=== PATIENT | female | born 1965 | race American Indian/Alaskan Native ===

== ENCOUNTER 2017-07-30 15:14 | Emergency (ER) | payer MEDICAID ==
[2017-07-30 15:49] LABS: Basophils % (Auto) 1.3 % (0.0-1.8); Eosinophils % (Auto) 0.6 % (0.0-4.3); Hematocrit 43.7 % (30.3-42.9); Hemoglobin 14.9 gm/dl (10.1-14.3); Mean Corpuscular HGB Conc 34 % (30-34); Mean Corpuscular Hemoglobin 33 pg (28-32); Mean Corpuscular Volume 97 fl (79-97); Platelet Count 240 K/mm3 (140-440); Red Blood Count 4.53 M/mm3 (3.65-5.03); Red Cell Distribution Width 14.1 % (13.2-15.2); White Blood Count 11.8 K/mm3 (4.5-11.0)
[2017-07-30 16:00] LABS: Alanine Aminotransferase 18 units/L (7-56); Albumin 4.1 g/dL (3.9-5); Albumin/Globulin Ratio 1.1 %; Alkaline Phosphatase 126 units/L (35-129); Anion Gap 19 mmol/L; Blood Urea Nitrogen 7 mg/dL (7-17); Calcium 9.2 mg/dL (8.4-10.2); Carbon Dioxide 24 mmol/L (22-30); Chloride 95.4 mmol/L (98-107); Glucose 103 mg/dL (65-100); Lipase 23 units/L (13-60); Potassium 3.6 mmol/L (3.6-5.0); Sodium 135 mmol/L (137-145); Total Protein 7.9 g/dL (6.3-8.2)
[2017-07-30 17:04] LABS: Bilirubin,Urine NEG (Negative); Blood,Urine NEG (Negative); Ketones,Urine NEG (Negative); Leukocyte Esterase,Urine NEG (Negative); Mucus,Urine 2+ /HPF; Nitrite,Urine NEG (Negative); Urobilinogen,Urine < 2.0 mg/dL (<2.0)
[2017-07-30] MEDS ORDERED: PEPCID IV ONE (19:46)
[2017-07-30] MEDS ORDERED: NACL 0.9% 1000 ML 1,000 ML IV ONE (19:46)
[2017-07-30] MEDS ORDERED: MORPHINE IV ONE (19:46)
[2017-07-30] MEDS ORDERED: ZOFRAN IV ONE (19:46)
[2017-07-30] MEDS ORDERED: CARAFATE PO ONE (19:47)
--- NOTE | 2017-07-30 19:48 | Emergency Department Report ---
ED Abdominal Pain HPI - General Chief Complaint: Abdominal Pain Stated Complaint: PAIN IN SIDE Time Seen by Provider: 07/30/17 19:40 Source: patient, RN notes reviewed, old records reviewed Mode of arrival: Ambulatory Limitations: No Limitations - History of Present Illness Initial Comments: This is a 52-year-old female who was previously unknown to this provider. Past medical history includes cholecystectomy and partial abdominal hysterectomy. She also has arthritis, and hypertension, reports that she does not have a primary care doctor. Patient presents to the ER with a complaint of abdominal pain. The abdominal pain is diffuse lower abdominal region, most prominent in the left lower quadrant, and also epigastric abdominal pain. This pain has been present for one month. There is positive nausea, no fevers or chills, no chest pain or shortness of breath, no irritative and obstructive urinary symptoms. Patient reports that she is defecating normally, passing gas. MD Complaint: abdominal pain -: Gradual Location: diffuse Quality: cramping Consistency: intermittent Improves With: rest Worsens With: movement Associated Symptoms: nausea, vomiting - Related Data Home Medications Medication Instructions Recorded Confirmed Last Taken Gabapentin [Gralise] 300 mg PO DAILY 06/10/15 06/10/15 06/09/15 300 mg Ondansetron [Zofran TAB] 4 mg PO Q6H 06/10/15 06/10/15 06/09/15 yes Previous Rx's Medication Instructions Recorded Last Taken Type Lisinopril/Hydrochlorothiazide 1 tab PO QDAY #30 tablet 10/06/13 06/09/15 Rx [Zestoretic 20-12.5 mg] 1 TAB metFORMIN [Glucophage] 850 mg PO BID #60 tablet 10/06/13 06/09/15 Rx 850 MG Dicyclomine [Bentyl] 10 mg PO QID PRN #20 capsule 07/30/17 Unknown Rx Famotidine [Pepcid] 20 mg PO QDAY #30 tablet 07/30/17 Unknown Rx Ondansetron [Zofran Odt] 4 mg PO QID PRN #20 tab.rapdis 07/30/17 Unknown Rx Allergies Allergy/AdvReac Type Severity Reaction Status Date / Time ibuprofen Allergy Rash Verified 07/30/17 15:17 Penicillins Allergy Rash Verified 07/30/17 15:17 tramadol Allergy Itching Verified 07/30/17 15:17 ED Review of Systems ROS: Stated complaint: PAIN IN SIDE Other details as noted in HPI Constitutional: denies: fever Eyes: denies: eye discharge ENT: denies: epistaxis Respiratory: denies: cough Cardiovascular: denies: chest pain Gastrointestinal: abdominal pain Genitourinary: denies: dysuria Musculoskeletal: arthralgia Skin: denies: lesions Neurological: denies: confusion ED Past Medical Hx - Past Medical History Hx Hypertension: Yes Hx Diabetes: Yes Hx Arthritis: Yes - Surgical History Hx Cholecystectomy: Yes Additional Surgical History: Hysterectomy - Social History Smoking Status: Current Every Day Smoker Substance Use Type: None - Medications Home Medications: Home Medications Medication Instructions Recorded Confirmed Last Taken Type Lisinopril/Hydrochlorothiazide 1 tab PO QDAY #30 tablet 10/06/13 06/10/15 Rx [Zestoretic 20-12.5 mg] 1 TAB metFORMIN [Glucophage] 850 mg PO BID #60 tablet 10/06/13 06/10/15 06/09/15 Rx 850 MG Gabapentin [Gralise] 300 mg PO DAILY 06/10/15 06/10/15 06/09/15 History 300 mg Ondansetron [Zofran TAB] 4 mg PO Q6H 06/10/15 06/10/15 06/09/15 History yes Dicyclomine [Bentyl] 10 mg PO QID PRN #20 capsule 07/30/17 Unknown Rx Famotidine [Pepcid] 20 mg PO QDAY #30 tablet 07/30/17 Unknown Rx Ondansetron [Zofran Odt] 4 mg PO QID PRN #20 tab.rapdis 07/30/17 Unknown Rx ED Physical Exam - General Limitations: No Limitations General appearance: alert, in no apparent distress - Head Head exam: Present: atraumatic, normocephalic - Eye Eye exam: Present: normal appearance, EOMI. Absent: nystagmus - ENT ENT exam: Present: normal exam, normal orophraynx, mucous membranes moist, normal external ear exam - Neck Neck exam: Present: normal inspection, full ROM. Absent: tenderness, meningismus - Respiratory Respiratory exam: Present: normal lung sounds bilaterally. Absent: respiratory distress, wheezes, rales, rhonchi, stridor, chest wall tenderness, accessory muscle use, decreased breath sounds, prolonged expiratory - Cardiovascular Cardiovascular Exam: Present: normal rhythm, tachycardia, normal heart sounds. Absent: systolic murmur, diastolic murmur, rubs, gallop - GI/Abdominal GI/Abdominal exam: Present: soft, tenderness, normal bowel sounds. Absent: distended - Extremities Exam Extremities exam: Present: normal inspection, full ROM, normal capillary refill , other (Extraocular movements intact. Tongue midline. No facial droop. Facial sensation intact to light touch in the V1, V2, V3 distribution bilaterally. 5 and 5 strength in 4 extremities.. Sensation is intact to light touch in 4 extremities.). Absent: pedal edema, joint swelling, calf tenderness - Back Exam Back exam: Present: normal inspection, full ROM. Absent: tenderness, CVA tenderness (R), CVA tenderness (L), muscle spasm, paraspinal tenderness, vertebral tenderness - Neurological Exam Neurological exam: Present: alert, oriented X3, other (Extraocular movements intact. Tongue midline. No facial droop. Facial sensation intact to light touch in the V1, V2, V3 distribution bilaterally. 5 and 5 strength in 4 extremities.. Sensation is intact to light touch in 4 extremities.). Absent: motor sensory deficit - Psychiatric Psychiatric exam: Present: normal affect, normal mood - Skin Skin exam: Present: warm, dry, intact, normal color. Absent: rash ED Course Vital Signs 07/30/17 07/30/17 07/30/17 15:18 19:15 19:30 Temperature 98.3 F 98.2 F Pulse Rate 106 H Respiratory 20 17 Rate Blood Pressure 126/82 Blood Pressure [Left] O2 Sat by Pulse 97 98 Oximetry 07/30/17 07/30/17 07/30/17 19:36 19:45 20:00 Temperature Pulse Rate 94 H 84 Respiratory 12 16 Rate Blood Pressure 121/69 115/73 Blood Pressure [Left] O2 Sat by Pulse 98 100 Oximetry 07/30/17 07/30/17 07/30/17 20:30 21:07 22:25 Temperature 98.5 F Pulse Rate 89 72 80 Respiratory 17 16 Rate Blood Pressure 115/64 115/64 Blood Pressure 105/68 [Left] O2 Sat by Pulse 96 99 Oximetry - Reevaluation(s) Reevaluation #1: 07/30/17 20:23 Differential diagnosis: Peptic ulcer disease, GERD/gastritis, intra-abdominal malignancy, colitis, diverticulitis, appendicitis, pneumonia, constipation, bowel obstruction Assessment and plan: 52-year-old female with acute subacute abdominal pain, who is afebrile with reassuring vital signs with the exception of tachycardia, with diffuse abdominal tenderness, most prominent in the epigastric and left lower quadrant region. The patient will be treated symptomatically. EKG, CT scan is pending. Disposition as per CT scan. Reevaluation #2: 07/30/17 21:48 Patient feels improved. Tachycardia resolved. Patient is tolerating liquid feeds. CT scan negative for acute disease. Incidental fatty infiltration of the liver is noted, areas of groundglass opacity noted in the lung bases, may be secondary to atelectasis. Given lack of cough, mucus production, fever, focal pulmonary findings on physical exam, symptoms present for 1 month, clinically doubt pneumonia. Patient is instructed to follow-up with an outpatient primary care doctor, she will be discharged with pain medication, nausea medication, return precautions are reviewed. ED Medical Decision Making - Lab Data Result diagrams: 07/30/17 15:28 07/30/17 15:28 Vital Signs 07/30/17 07/30/17 07/30/17 15:18 19:15 19:30 Temperature 98.3 F 98.2 F Pulse Rate 106 H Respiratory 20 17 Rate Blood Pressure 126/82 O2 Sat by Pulse 97 98 Oximetry 07/30/17 07/30/17 19:36 19:45 Temperature Pulse Rate 94 H Respiratory 12 Rate Blood Pressure 121/69 O2 Sat by Pulse 98 100 Oximetry Lab Results 07/30/17 07/30/17 07/30/17 Range/Units 15:25 15:28 15:28 WBC 11.8 H (4.5-11.0) K/mm3 RBC 4.53 (3.65-5.03) M/mm3 Hgb 14.9 H (10.1-14.3) gm/dl Hct 43.7 H (30.3-42.9) % MCV 97 (79-97) fl MCH 33 H (28-32) pg MCHC 34 (30-34) % RDW 14.1 (13.2-15.2) % Plt Count 240 (140-440) K/mm3 Lymph % (Auto) 35.0 (13.4-35.0) % Power % (Auto) 5.5 (0.0-7.3) % Eos % (Auto) 0.6 (0.0-4.3) % Baso % (Auto) 1.3 (0.0-1.8) % Lymph # 4.1 (1.2-5.4) K/mm3 Power # 0.6 (0.0-0.8) K/mm3 Eos # 0.1 (0.0-0.4) K/mm3 Baso # 0.1 (0.0-0.1) K/mm3 Seg Neutrophils % 57.6 (40.0-70.0) % Seg Neutrophils # 6.8 (1.8-7.7) K/mm3 Sodium 135 L (137-145) mmol/L Potassium 3.6 (3.6-5.0) mmol/L Chloride 95.4 L (98-107) mmol/L Carbon Dioxide 24 (22-30) mmol/L Anion Gap 19 mmol/L BUN 7 (7-17) mg/dL Creatinine 0.7 (0.7-1.2) mg/dL Estimated GFR > 60 ml/min BUN/Creatinine Ratio 10.00 % Glucose 103 H (65-100) mg/dL POC Glucose 95 (70-105) Calcium 9.2 (8.4-10.2) mg/dL Total Bilirubin 0.40 (0.1-1.2) mg/dL AST 12 (5-40) units/L ALT 18 (7-56) units/L Alkaline Phosphatase 126 (35-129) units/L Total Protein 7.9 (6.3-8.2) g/dL Albumin 4.1 (3.9-5) g/dL Albumin/Globulin Ratio 1.1 % Lipase 23 (13-60) units/L Urine Color (Yellow) Urine Turbidity (Clear) Urine pH (5.0-7.0) Ur Specific [place] (1.003-1.030) Urine Protein (Negative) mg/dL Urine Glucose (UA) (Negative) mg/dL Urine Ketones (Negative) mg/dL Urine Blood (Negative) Urine Nitrite (Negative) Urine Bilirubin (Negative) Urine Urobilinogen (<2.0) mg/dL Ur Leukocyte Esterase (Negative) Urine WBC (Auto) (0.0-6.0) /HPF Urine RBC (Auto) (0.0-6.0) /HPF U Epithel Cells (Auto) (0-13.0) /HPF Urine Mucus /HPF 07/30/17 Range/Units Unknown WBC (4.5-11.0) K/mm3 RBC (3.65-5.03) M/mm3 Hgb (10.1-14.3) gm/dl Hct (30.3-42.9) % MCV (79-97) fl MCH (28-32) pg MCHC (30-34) % RDW (13.2-15.2) % Plt Count (140-440) K/mm3 Lymph % (Auto) (13.4-35.0) % Power % (Auto) (0.0-7.3) % Eos % (Auto) (0.0-4.3) % Baso % (Auto) (0.0-1.8) % Lymph # (1.2-5.4) K/mm3 Power # (0.0-0.8) K/mm3 Eos # (0.0-0.4) K/mm3 Baso # (0.0-0.1) K/mm3 Seg Neutrophils % (40.0-70.0) % Seg Neutrophils # (1.8-7.7) K/mm3 Sodium (137-145) mmol/L Potassium (3.6-5.0) mmol/L Chloride (98-107) mmol/L Carbon Dioxide (22-30) mmol/L Anion Gap mmol/L BUN (7-17) mg/dL Creatinine (0.7-1.2) mg/dL Estimated GFR ml/min BUN/Creatinine Ratio % Glucose (65-100) mg/dL POC Glucose (70-105) Calcium (8.4-10.2) mg/dL Total Bilirubin (0.1-1.2) mg/dL AST (5-40) units/L ALT (7-56) units/L Alkaline Phosphatase (35-129) units/L Total Protein (6.3-8.2) g/dL Albumin (3.9-5) g/dL Albumin/Globulin Ratio % Lipase (13-60) units/L Urine Color Yellow (Yellow) Urine Turbidity Clear (Clear) Urine pH 5.0 (5.0-7.0) Ur Specific [place] 1.019 (1.003-1.030) Urine Protein 30 mg/dl (Negative) mg/dL Urine Glucose (UA) Neg (Negative) mg/dL Urine Ketones Neg (Negative) mg/dL Urine Blood Neg (Negative) Urine Nitrite Neg (Negative) Urine Bilirubin Neg (Negative) Urine Urobilinogen < 2.0 (<2.0) mg/dL Ur Leukocyte Esterase Neg (Negative) Urine WBC (Auto) 2.0 (0.0-6.0) /HPF Urine RBC (Auto) 1.0 (0.0-6.0) /HPF U Epithel Cells (Auto) 7.0 (0-13.0) /HPF Urine Mucus 2+ /HPF - EKG Data -: EKG Interpreted by Me EKG shows normal: sinus rhythm - EKG Data When compared to previous EKG there are: previous EKG unavailable 07/30/17 20:32 Normal sinus, 87 beats per minute, rightward axis deviation, low voltage, abnormal EKG, not more morphologically c/w with STEMI, no prior for comparison. - Radiology Data Radiology results: pending, report reviewed Critical care attestation.: If time is entered above; I have spent that time in minutes in the direct care of this critically ill patient, excluding procedure time. ED Disposition Clinical Impression: Abdominal pain Disposition: DC-01 TO HOME OR SELFCARE Is pt being admited?: No Does the pt Need Aspirin: No Condition: Stable Instructions: Abdominal Pain (ED) Additional Instructions: Do not take metformin for the next 48 hours. Take the prescribed pain medication, nausea medication as needed/directed. Follow-up with primary care doctor within the next 2-3 weeks. Return to the ER right away with new pain, worse pain, migration of pain, fevers, chills, lethargy, irritability, projectile vomiting, change in mental status, inability to tolerate liquid feeds. CT scan demonstrated incidental findings, none of which are emergent, but a primary care doctor should contact the medical records department to obtain the CT scan results, and follow them up as directed. Prescriptions: Dicyclomine [Bentyl] 10 mg PO QID PRN #20 capsule PRN Reason: Pain Famotidine [Pepcid] 20 mg PO QDAY #30 tablet Ondansetron [Zofran Odt] 4 mg PO QID PRN #20 tab.rapdis PRN Reason: Nausea Referrals: PRIMARY CARE, [Primary Care Provider] - 3-5 Days NARESH ALLISON MD [Staff Physician] - 3-5 Days AILYN ALLISON MD [Referring] - 3-5 Days [facility] [Provider Group] - 3-5 Days
[2017-07-30] MEDS ORDERED: NACL ONE (19:59)
[2017-07-30] MEDS ORDERED: BENTYL PO ONE (20:00)
[2017-07-30 20:31] LABS: INR 0.99 (0.87-1.13)
--- NOTE | 2017-07-30 21:34 | Cat Scan Report ---
FINAL REPORT EXAM: CT ABDOMEN PELVIS W CON HISTORY: abd pain TECHNIQUE: Serial axial images through the abdomen and pelvis with coronal and sagittal reconstruction. Intravenous administration 100 milliliters Omni 300 PRIORS: None. FINDINGS: Areas of ground-glass opacity are seen in the lung bases. No pleural effusion is seen. Gallbladder is surgically absent. There is fatty infiltration of the liver. Gallbladder is surgically absent. The pancreas, spleen and adrenal glands appear within normal limits. Kidneys appear normal. Aorta is normal in caliber. Bladder appears normal. Uterus is absent. No free fluid. Appendix appears normal. No gross bowel abnormality is identified. No acute osseous abnormality is identified. There are degenerative changes in the spine. IMPRESSION: 1. Fatty infiltration of the liver. 2. Normal appearing appendix. 3. No free fluid or inflammatory changes are seen in the abdomen or pelvis. 4. Areas of ground-glass opacity are seen in the lung bases. This is a nonspecific finding. It may be secondary to atelectasis. Possibility of infection or edema is not excluded.
[2017-07-30 22:40] VITALS: BP 105/68
== END 2017-07-30 22:25 | disposition home or self-care (01) ==
LOC: ED 15:14
DX: R10.84 Generalized abdominal pain (principal); E11.9 Type 2 diabetes mellitus without complications; M19.90 Unspecified osteoarthritis, unspecified site; Z88.0 Allergy status to penicillin; Z88.6 Allergy status to analgesic agent; F17.200 Nicotine dependence, unspecified, uncomplicated
CPT/HCPCS: 36415; 74177; 80053; 81001; 82140; 82550; 82962; 83690; 85025; 85610; 93005; 93010; 96361; 96374; 96375; 99284; J2270; J2405; J7030; Q9967